=== PATIENT | male | born 2005 | race Caucasian/White ===

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

== ENCOUNTER 2024-01-08 18:30 | Emergency (ER) | payer OTHER, SELFPAY ==
[2024-01-08 18:45] VITALS: BP 117/48; PULSE 58; RESP 18; TEMP 36.9; O2SAT 100
--- NOTE | 2024-01-08 19:02 | ED_ITS ---
HPI - General Adult General Chief complaint: Extremity Problem,Nontraumatic Stated complaint: tetanus shot Time Seen by Provider: 01/08/24 19:02 Source: patient Mode of arrival: ambulatory Limitations: no limitations History of Present Illness HPI narrative: 18-year-old male patient presents to the [facility] accompanied with his mother for request for tetanus shot after stepping on [address] ates he was cleaning up some old wood outside and stepped on 2 nails the 1st 1 did not puncture him but the 2nd 1 did. Patient states it is very sore. Related Data Allergies Allergy/AdvReac Type Severity Reaction Status Date / Time No Known Allergies Allergy Verified 01/08/24 18:53 Review of Systems Review of Systems: CONSTITUTIONAL: Denies fever, chills, or sweats. EYES: Denies visual changes, redness, or discharge. ENT: Denies rhinorrhea, congestion, sore throat, or otalgia. CARDIOVASCULAR: Denies chest pain, palpitations, or edema. RESPIRATORY: Denies cough or dyspnea. GASTROINTESTINAL: Denies abdominal pain, nausea, vomiting, or diarrhea. GENITOURINARY: Denies dysuria or hematuria. SKIN: Denies rash or itching. Positive puncture wound to the bottom of the left foot MUSCULOSKELETAL: Denies back pain, joint pain, or myalgia. NEUROLOGIC: Denies headache, numbness, or weakness. PSYCHIATRIC: Denies anxiety or depression. PMFSH Past Medical History Medical History No pertinent past medical history Surgical History Surgical History No pertinent past surgical history Social History Social History Smoking status: Never smoker Alcohol intake: never Substance use: never Living arrangements: with family Comments at the time of my signature I agree with nursing past medical history, surgical, social, and family history. There is no relevant family history pertinent to the presenting complaint. Exam Narrative: GENERAL: Well-appearing, well-nourished, and in no acute distress. HEAD: Normocephalic, atraumatic. EYES: PERRLA and EOMI. ENT: Nares clear, no rhinorrhea or epistaxis. Mucous membranes moist. NECK: Supple. No lymphadenopathy CHEST: Clear to auscultation. No respiratory distress. HEART: Regular rate and rhythm. No murmur heard. Normal peripheral pulses. ABDOMEN: Soft, nontender, nondistended, normal active bowel sounds. EXTREMITIES: Normal range of motion. No edema. SKIN: Warm, dry, no rash. patient has small puncture wound noted to the sole of the left foot proximal to the 3rd 4th and 5th toes. There is no surrounding erythema no discharge present but there is tenderness on palpation to the area. NEURO: No focal deficits. Alert and oriented x3. Course Course Level of Care: Express Care Visit Vital Signs Vital signs: Vital Signs Temperature 36.9 C 01/08/24 18:45 Pulse Rate 58 L 01/08/24 18:45 Respiratory Rate 18 01/08/24 18:45 Blood Pressure 117/48 L 01/08/24 18:45 Pulse Oximetry 100 01/08/24 18:45 Oxygen Delivery Room Air 01/08/24 18:45 Temperature 36.9 C 01/08/24 18:45 Pulse Rate 58 L 01/08/24 18:45 Respiratory Rate 18 01/08/24 18:45 Blood Pressure 117/48 L 01/08/24 18:45 Pulse Oximetry 100 01/08/24 18:45 Oxygen Delivery Room Air 01/08/24 18:45 Vital signs reviewed. Medical Decision Making MDM Narrative Medical decision making narrative: Discussed with patient that we will go ahead and update his tetanus shot today but given the fact that the toe nail was a dirty nail and it is on the bottom of his foot I do think that we need to go ahead and give him some antibiotics. Discussed with patient to keep the wound clean, do some Epsom salt soaks to the foot, and put some antibiotic ointment to the area to decrease worsening infection. Patient verbalized understanding denies any other questions or concerns at this time. Differential Diagnosis Differential Diagnosis: Differential diagnosis: Abscess, cellulitis, hidradenitis, laceration, puncture wound. Vital Signs Vital Signs: Vital Signs Temperature 36.9 C 01/08/24 18:45 Pulse Rate 58 L 01/08/24 18:45 Respiratory Rate 18 01/08/24 18:45 Blood Pressure 117/48 L 01/08/24 18:45 Pulse Oximetry 100 01/08/24 18:45 Oxygen Delivery Room Air 01/08/24 18:45 Temperature 36.9 C 01/08/24 18:45 Pulse Rate 58 L 01/08/24 18:45 Respiratory Rate 18 01/08/24 18:45 Blood Pressure 117/48 L 01/08/24 18:45 Pulse Oximetry 100 01/08/24 18:45 Oxygen Delivery Room Air 01/08/24 18:45 Discharge Plan Discharge Clinical Impression: Immunization, tetanus toxoid Puncture wound of foot, left Qualifiers: Encounter type: initial encounter Qualified Code(s): S91.332A - Puncture wound without foreign body, left foot, initial encounter Patient Disposition: Home, Self-Care Condition: Stable Instructions: Antibiotic Form, Puncture Wound in the Foot (ED) Additional Instructions: May take [id number] Tylenol or ibuprofen as needed for pain. Take antibiotics as directed. Rest the injury site as much possible. If the puncture wound is on your foot you may use crutches if needed. Otherwise try and keep her weight off of the foot as it heals. Elevate the injury above the level of your heart is often NGT and this will help decrease swelling and pain. use warms Epsom salt soaks to help debride the foot wound about 2 times daily, wash it with soap water and apply antibiotic ointment and Band-Aid as it heals. Go to the ER or call your primary care physician if: You have severe pain You have numbness or tingling in the area of your wound You're wound starts bleeding and does not stop even if you apply pressure. You have new drainage or bad odor coming from the wound You have a fever You have increased swelling, redness or pain You have red streaks on your skin coming from your wound Prescriptions: New cephalexin 500 mg tablet 500 mg PO Q12H 7 Days Qty: 14 0RF Follow-up/Referrals: PHYSICIAN,SENIOR PLANNING MANAGER [Primary Care Provider] - Time of Disposition: 19:11
[2024-01-08] MEDS: TETANUS,DIPHTHERIA,AC PERTUSSIS ADULT (0.5 ML) BOOSTRIX IM (19:09)
== END 2024-01-08 19:17 | disposition home or self-care (01) ==
PROVIDERS: Emergency Provider Nurse Practitioner Family; Referring Provider Emergency Medicine
DX: S91.332A Puncture wound without foreign body, left foot, initial encounter (principal); W45.0XXA Nail entering through skin, initial encounter; Z23 Encounter for immunization
CPT/HCPCS: 90471; 90715; 99213; G0463

== ENCOUNTER 2024-04-06 12:34 | Emergency (ER) | payer OTHER, SELFPAY ==
[2024-04-06 12:54] VITALS: BP 116/55; PULSE 67; RESP 20; TEMP 37; O2SAT 98
--- NOTE | 2024-04-06 13:01 | ED.URI ---
HPI - URI/Sore Throat General Chief Complaint: Upper Respiratory Infection Stated Complaint: soreness and coughing Time Seen by Provider: 04/06/24 13:01 Source: patient Mode of arrival: ambulatory Limitations: no limitations History of Present Illness HPI Narrative: 19-year-old male presents with complaint of nasal congestion, cough, sore throat, fatigue, body aches, low-grade fever starting yesterday evening. Not taking any opow-qic-quljzxe medications to treat symptoms. Denies nausea vomiting diarrhea. No chest pain or shortness of breath. All systems reviewed and negative except as noted above. Related Data Allergies Allergy/AdvReac Type Severity Reaction Status Date / Time No Known Allergies Allergy Verified 04/06/24 12:49 Review of Systems Review of Systems: CONSTITUTIONAL: reports fever, chills, or sweats. EYES: Denies visual changes, redness, or discharge. ENT: Reports rhinorrhea, congestion, sore throat. Denies otalgia. CARDIOVASCULAR: Denies chest pain, palpitations, or edema. RESPIRATORY: reports cough. Denies dyspnea. GASTROINTESTINAL: Denies abdominal pain, nausea, vomiting, or diarrhea. GENITOURINARY: Denies dysuria or hematuria. SKIN: Denies rash or itching. MUSCULOSKELETAL: Denies back pain, joint pain. Reports myalgia. NEUROLOGIC: Denies headache, numbness, or weakness. PSYCHIATRIC: Denies anxiety or depression. All other systems reviewed are negative, except as documented in HPI. PMFSH Past Medical History Medical History No pertinent past medical history Surgical History Surgical History No pertinent past surgical history Social History Social History Smoking status: Never smoker Alcohol intake: never Substance use: never Living arrangements: with family Comments At time of signature, agree with nursing past medical, surgical, social and family history. There is no relevant family history pertinent to the presenting complaint. Exam Narrative: GENERAL: This is a well-nourished, well-developed patient, ill-appearing but in no acute distress HEAD: normocephalic, atraumatic. EYES: PERRL. Sclera clear/white. Vision is grossly intact. EARS: External ears normal, auditory canals clear and without drainage, TMs normal without perforation. Hearing grossly intact. NOSE: External nose normal with mild congestion, clear nasal drainage THROAT: Mucous membranes moist, erythematous, mild swelling with clear postnasal drainage. No exudates. NECK: Neck supple, non-tender without lymphadenopathy, masses or thyromegaly. CARDIOVASCULAR: Regular rate and rhythm without murmurs, gallops, or rubs. RESPIRATORY: Clear to auscultation. Breath sounds equal bilaterally. No wheezes, rales, or rhonchi. SKIN: warm, Dry, intact with no suspicious lesions or rash, good texture and turgor. NEURO: awake, alert, and oriented to person, place and time. There were no obvious focal neurologic abnormalities. EXTREMITIES: No joint tenderness, effusion, or edema noted. Course Course Level of Care: Express Care Visit Vital Signs Vital signs: Vital Signs Temperature 37.0 C 04/06/24 12:54 Pulse Rate 67 04/06/24 12:54 Respiratory Rate 20 04/06/24 12:54 Blood Pressure 116/55 L 04/06/24 12:54 Pulse Oximetry 98 04/06/24 12:54 Oxygen Delivery Room Air 04/06/24 12:54 Temperature 37.0 C 04/06/24 12:54 Pulse Rate 67 04/06/24 12:54 Respiratory Rate 20 04/06/24 12:54 Blood Pressure 116/55 L 04/06/24 12:54 Pulse Oximetry 98 04/06/24 12:54 Oxygen Delivery Room Air 04/06/24 12:54 Reviewed MDM - URI/Sore Throat MDM Narrative Medical decision making narrative: negative COVID, influenza and strep test. Strep culture ordered. Patient is well-appearing, nontoxic. Lungs clear to auscultation. Recommend yhec-aeg-wivepbe medications to treat viral symptoms. Please be advised this is a medical document. It is intended for rfkb-ez-xuzx communication. It is written in medical language and may contain unfamiliar abbreviations or verbiage. Medical documents are intended to carry relevant information, facts as evident, and the clinical opinion of the practitioner at the time of the encounter. This report may have been done utilizing a voice recognition system. Attempts have been made to correct errors. However, there may be uncorrected grammatical, spelling, and recognition errors present. The file time of this note does not necessarily represent the time of service. Differential Diagnosis Differential diagnosis: Likely upper respiratory infection, sinusitis, viral infection, influenza and pharyngitis Lab Data Labs: Lab Results 04/06/24 04/06/24 Range/Units 13:07 13:35 POC Influenza A Ag Negative (Negative) POC Influenza B Ag Negative (Negative) POC SARS CoV-2 Ag Negative (Negative) POC Grp A Strep Screen Negative (Negative) Discharge Plan Discharge Clinical Impression: Viral upper respiratory tract infection with cough Patient Disposition: Home, Self-Care Condition: Stable Instructions: Upper Respiratory Infection (ED) Additional Instructions: your COVID, influenza and strep test was negative today. A strep culture was ordered and results will take 24-48 hours. If her strep culture is positive we will call you at that time and prescribed an antibiotic. Your symptoms are viral and may last 10-14 days. Take an yexl-kgz-hfxcueo medication to treat her symptoms such as DayQuil NyQuil cold and flu. Take ibuprofen every 6-8 hours as needed for pain and fever. Drink at least 64 oz of water a day. Follow-up with your doctor if symptoms are not improving. Patient Language: Slovenian Prescriptions: No Action cephalexin 500 mg tablet 500 mg PO Q12H 7 Days Qty: 14 0RF Follow-up/Referrals: PHYSICIAN,RAKE OPERATOR [Primary Care Provider] - Eber Morrison MD [Physician] - ( establish care with a primary care physician) Stand Alone Forms: Work/School Release IP Time of Disposition: 13:41
[2024-04-06 13:09] LABS: EDCOVIDSCREEN Negative (Negative); EDINFLUASCREEN Negative (Negative); EDINFLUBSCREEN Negative (Negative)
[2024-04-06 13:37] LABS: EDSTREPNEGPOS1 Negative (Negative)
== END 2024-04-06 13:43 | disposition home or self-care (01) ==
PROVIDERS: Emergency Provider Nurse Practitioner Family; Referring Provider Emergency Medicine
DX: J06.9 Acute upper respiratory infection, unspecified (principal); Z20.822 Contact with and (suspected) exposure to COVID-19
CPT/HCPCS: 87081; 87426; 87804; 87880; 99213; G0463